=== PATIENT | male | born 1940 | race Caucasian/White ===

== ENCOUNTER → 2017-03-21 | Outpatient (CLI) | payer OTHER | LOC: FIMAGING 10:56 | PROVIDERS: ATTEND Physician Assistant | DX: Z13.820 Encounter for screening for osteoporosis (principal); Z91.81 History of falling ==

== ENCOUNTER 2018-03-11 17:44 | Emergency (ER) | payer OTHER ==
--- NOTE | 2018-03-11 18:08 | EDPHY ---
General Time Seen by Provider: 03/11/18 18:01 Narrative: CHIEF COMPLAINT: smashed finger HISTORY OF PRESENT ILLNESS: Patient presents with complaints of smashed finger. He says he was working on his van around noon today when he accidentally smashed his left ring finger between 2 pieces of metal. He has moderate pain at the distal part of the left ring finger. He has no pain anywhere else on the hand, wrist or arm. No numbness or tingling. There is some bleeding from the site. No weakness. No injury anywhere else on his person. Pain is worse with palpation and movement. Improved at rest. Does not radiate. No other associated complaints or modifying factors. Right-hand dominant. TIME OF INJURY: 12:00 p.m. Today TETANUS STATUS: Questionable MEDICAL/SURGICAL/SOCIAL HISTORY: Parkinson's. Right-hand dominant. Lives here independently with his spouse. Nonsmoker. REVIEW OF SYSTEMS: Ten systems reviewed and are negative unless otherwise noted in the HPI EXAMINATION General Appearance: Alert, no distress Head: normocephalic, atraumatic Cardiovascular: Symmetric radial pulses 2+. Brisk cap refill in the fingers left hand with left ring finger subungual hematoma. Neurological: A&O, sensory symmetric, interossei strength symmetric. Skin: Warm and dry, no rash. Small puncture on the pad of the left ring finger distal phalanx. No pulsatile bleeding. Extremities: Swelling and tenderness of the left ring finger distally. Range of motion is intact including superficialis and profundus flexors. Normal extension. No evidence of tenosynovitis, septic joint or infection. DIFFERENTIAL DIAGNOSES: Including but not limited to tuft fracture, crush injury, hematoma, subungual hematoma MDM: 6:30 p.m. Crush injury to left ring finger with likely tuft fracture and there is a subungual hematoma that will need to be drained. I have administered a digital block. I will proceed with x-ray, irrigation re-evaluation 6:50 p.m. Close crush injury to the left ring finger without fracture. There was a puncture that was repaired as well as a subungual hematoma drained. This was done without difficulty. He will be placed in a tube gauze dressing for 24-48 hours. We discussed daily wound care, follow up with primary care physician and ED precautions. We discussed suture removal here in 7 days. We discussed ice and elevation. We discussed OTC NSAIDS if allowed by primary care physician and if tolerated. He verbalized understanding of this and is discharged home stable condition. PROCEDURE: Digital Block Indication: Left ring finger crush injury with subungual hematoma Consent: Verbal Location: Left ring finger Anesthesia: Lidocaine 1% plain, 0.25% Marcaine plain, 5mL Description: Base of the finger was prepped. The above was infused without difficulty. Tolerated well. Good anesthesia. Complications: None PROCEDURE: Laceration repair Consent: Verbal Location: Left ring finger, distal phalanx pad Length of repair: 1 cm Complexity: Simple Layer involvement: Single Anesthesia: Digital block Irrigation: Extensive Debridement: None Procedure description: Following good anesthesia, the wound was copiously irrigated. Wound bed was explored with a sterile glove, and there is no foreign body noted. No tendon injury. Wound borders were approximated well with good hemostasis. Tolerated well without complication. Suture/Staple material: 5-0 Prolene, 1 simple interrupted suture Wound care: Routine as discussed Suture/Staple removal: 7 Days PROCEDURE: Subungual hematoma drainage Consent: Verbal Location: Left ring finger Anesthesia: Digital block Procedure description: After time-out and verbal consent, the left finger was prepped in common sterile fashion. 18 gauge needle was used to trephination the left ring fingernail. There was expression of 2-3 mL of venous blood. Brisk cap refill postprocedure. Tolerated well. Expressed: 2-3 mL sanguinous SUPERVISION: This patient was independently evaluated without direct involvement of or examination by the attending physician. ED Precautions: Worsening pain. Erythema, edema, cyanosis, pallor, paresthesia or anesthesia. - Diagnostics Imaging Results: Imaging Impressions Finger X-Ray 03/11/18 18:08 Impression: 1. No acute osseous abnormality seen left fourth digit. 2. Soft tissue swelling noted. - History Smoking Status: Never smoked - Objective Vital Signs: Initial Vital Signs Temperature (C) 97.9 F 03/11/18 17:51 Heart Rate 73 03/11/18 17:51 Respiratory Rate 18 03/11/18 17:51 Blood Pressure 174/92 H 03/11/18 17:51 O2 Sat (%) 94 03/11/18 17:51 O2 Delivery Mode Room Air Allergies/Adverse Reactions: metals Allergy (Unknown, Uncoded 03/11/18 17:46) Home Medications: Medication Instructions Recorded rOPINIRole HCL [Requip 1mg (*)] 3 mg PO TID 04/05/13 Acyclovir [Zovirax 400 mg (*)] 400 mg PO BID 04/06/13 Latanoprost 0.005% [Xalatan 0.005% 1 drops EACHEYE HS 04/06/13 (*)] Pravastatin Sodium 40 mg PO HS 12/07/15 Acetaminophen [Tylenol 325mg (*)] 650 mg PO Q4 PRN #0 tab 12/08/15 Acyclovir [Zovirax 400 mg (*)] 400 mg PO BID #0 tab 12/08/15 Docusate Sodium [Colace 100 MG (*)] 100 mg PO BID #0 cap 12/08/15 Latanoprost 0.005% [Xalatan 0.005% 1 drops EACHEYE HS #0 opht.btl 12/08/15 (*)] Pravastatin Sodium [Pravachol] 40 mg PO HS #0 tab 12/08/15 rOPINIRole HCL [Requip 2mg (*)] 3 mg PO TID #0 tab 12/08/15 Vesicare 03/11/18 Medications Given: Discontinued Medications Diphtheria/Tetanus/Acell Pertussis (Boostrix) 0.5 ml IM .ONCE ONE Stop: 03/11/18 18:10 Last Admin: 03/11/18 18:20 Dose: 0.5 ml Departure - Departure Disposition: Home, Routine, Self-Care Clinical Impression: Crushing injury of finger of left hand Hematoma, subungual, finger, left Qualifiers: Encounter type: initial encounter Qualified Code(s): S60.10XA - Contusion of unspecified finger with damage to nail, initial encounter Finger laceration Qualifiers: Encounter type: initial encounter Finger: ring finger Damage to nail status: without damage Foreign body presence: without foreign body Laterality: left Qualified Code(s): S61.215A - Laceration without foreign body of left ring finger without damage to nail, initial encounter Condition: Good Instructions: Subungual Hematoma (ED), Crush Injury (ED) Additional Instructions: 1. You may leave the dressing in place for up to 48 hr. 2. Wash the area of laceration once daily and apply a dressing or bandage once dry. Do this once daily 3. Contact your primary care physician tomorrow to notify them of this visit 3. Return here in 7 days for suture removal Referrals: Chente Sousa MD [Primary Care Provider] - As per Instructions Nadja Rodriguez MD [Medical Doctor] - As per Instructions Physician,Emergency DeptMD [Medical Doctor] - As per Instructions (Seven days for suture removal)
[2018-03-11] MEDS ORDERED: TDAP ADULT 0.5 ML INJ (BOOSTRIX) IM ONE (18:09)
[2018-03-11 19:15] VITALS: BP 143/94
== END 2018-03-11 19:10 | disposition home or self-care (01) ==
DX: S61.315A Laceration without foreign body of left ring finger with damage to nail, initial encounter (principal); Z23 Encounter for immunization; W23.1XXA Caught, crushed, jammed, or pinched between stationary objects, initial encounter; Y99.8 Other external cause status; Y93.89 Activity, other specified

== ENCOUNTER 2019-02-11 09:04 | Observation (INO) | payer OTHER ==
[2019-02-11] MEDS ORDERED: ceFAZolin 2 GM/DEXTROSE 100 ML IV ONE (09:40)
[2019-02-11] MEDS ORDERED: OPIUM/BELLADONNA ALKALO SUPP PR PRN ×2 (09:40→12:21)
[2019-02-11] MEDS ORDERED: LR 1,000 ML IV ONE (09:40)
[2019-02-11] MEDS ORDERED: LIDOCAINE 2% JELLY 20 ML (UROJECT) ONE (10:14)
[2019-02-11] MEDS ORDERED: OPIUM/BELLADONNA ALKALO SUPP PR ONE (10:15)
--- NOTE | 2019-02-11 10:23 | PDANEPAE ---
ANE Past Medical History - Cardiovascular History Hx Hypertension: No Hx Arrhythmias: No Hx Chest Pain: No Hx Coronary Artery / Peripheral Vascular Disease: No Hx CHF / Valvular Disease: No Hx Palpitations: No - Pulmonary History Hx COPD: No Hx Asthma/Reactive Airway Disease: No Hx Recent Upper Respiratory Infection: No Hx Oxygen in Use at Home: No Hx Sleep Apnea: No Sleep Apnea Screening Result - Last Documented: Negative Pulmonary History Comment: MONY USES C-PAP - Neurologic History Hx Cerebrovascular Accident: No Hx Seizures: No Hx Dementia: No Neurologic History Comment: PARKINSON DX 1993. NO TREMOR SINCE DEEP BRAIN STIMULATOR PLACED - Endocrine History Hx Diabetes: No - Renal History Hx Renal Disorders: Yes Renal History Comment: BPH - Liver History Hx Hepatic Disorders: No - Neurological & Psychiatric Hx Hx Neurological and Psychiatric Disorders: No - Cancer History Hx Cancer: Yes Cancer History Comment: SKIN - Congenital Disorder History Hx Congenital Disorders: No - GI History Hx Gastrointestinal Disorders: No - Other Health History Other Health History: LT LEG SCIATICA. GLAUCOMA. MISSING TEETH - Chronic Pain History Chronic Pain: No - Surgical History Prior Surgeries: LOKI CATARACT/GLAUCOMA. DEEP BRAIN STIMULATOR 2006. Vocal cord surgery (injection?) ANE Review of Systems Review of Systems: - Exercise capacity METS (RN): 4 METS ANE Patient History - Allergies Allergies/Adverse Reactions: metals Allergy (Unknown, Uncoded 02/11/19 09:49) Rash - Home Medications Home medications: home medication list seen and reviewed Home Medications: RX: rOPINIRole HCL [Requip 1mg (*)] 3 mg PO TID 04/05/13 [Last Taken 02/10/19 20 :00] RX: Acyclovir [Zovirax 400 mg (*)] 400 mg PO BID 04/06/13 [Last Taken 02/11/19 06:30] RX: Latanoprost 0.005% [Xalatan 0.005% (*)] 1 drops EACHEYE HS 04/06/13 [Last Taken 02/10/19] RX: Pravastatin Sodium 40 mg PO HS 12/07/15 [Last Taken 02/10/19 20:00] Amantadine BID 02/02/19 [Last Taken 02/11/19 06:30] Myrbetriq HS 02/02/19 [Last Taken 02/10/19 20:00] Niacin 500 mg (*) BID 02/02/19 [Last Taken 02/11/19 06:30] Viagra PRN 02/02/19 [Last Taken 2 Weeks Ago ~01/28/19] RX: Cefadroxil 02/11/19 [Last Taken 02/11/19 06:30] - NPO status NPO Status: no food or drink >8 hours NPO Since - Liquids (Date): 02/11/19 NPO Since - Liquids (Time): 06:00 NPO Since - Solids (Date): 02/10/19 NPO Since - Solids (Time): 20:00 - Anes Hx Anes Hx: no prior problems - Smoking Hx Smoking Status: Never smoked ANE Labs/Vital Signs - Vital Signs Blood Pressure: 143/80 Heart Rate: 81 Respiratory Rate: 16 O2 Sat (%): 96 Height: 172.72 cm Weight: 77.111 kg ANE Physical Exam - Airway Neck exam: decreased ROM Mallampati Score: Class 3 Mouth exam: poor dentition - Pulmonary Pulmonary: clear to auscultation - Cardiovascular Cardiovascular: regular rate and rhythym - ASA Status ASA Status: III ANE Anesthesia Plan Anesthesia Plan: GA w LMA
[2019-02-11] MEDS ORDERED: PROPOFOL 200 MG/20 ML VIAL ONE (10:24)
[2019-02-11] MEDS ORDERED: PROPOFOL/EMULSION 500 MG/50 ML BOTTLE IV ONE (10:24)
[2019-02-11] MEDS ORDERED: fentaNYL 100 MCG/2 ML INJ ONE ×2 (10:25→11:28)
--- NOTE | 2019-02-11 10:40 | PDHPUP ---
History & Physical Update H&P update statement: This history and physical update is based on an assessment of the patient which was completed after admission or registration (within 24 hours), but prior to the surgery/procedure. H&P update: H&P reviewed & patient examined, no change in patient's condition since H&P completed
[2019-02-11] MEDS ORDERED: PHENYLEPHRINE HCL 100 MCG/ML SYR ONE (11:10)
[2019-02-11] MEDS ORDERED: NALOXONE HCL 0.4 MG/ML INJ IVP PRN (11:36)
[2019-02-11] MEDS ORDERED: LR 500 ML IV PRN (11:36)
[2019-02-11] MEDS ORDERED: LABETALOL HCL 5 MG/ML 20 ML MDV IVP PRN (11:36)
[2019-02-11] MEDS ORDERED: HYDROmorphONE/DILAUDID 1 MG/ML INJ IVP PRN ×2 (11:36→12:21)
[2019-02-11] MEDS ORDERED: ONDANSETRON 4 MG/2 ML VIAL IVP PRN ×2 (11:36→12:21)
[2019-02-11] MEDS ORDERED: DEXAMETHASONE 4 MG/ML VIAL IVP PRN (11:36)
[2019-02-11] MEDS ORDERED: fentaNYL 100 MCG/2 ML INJ IVP PRN (11:36)
[2019-02-11] MEDS ORDERED: ACETAMINOPHEN 500 MG TAB PO PRN (11:36)
[2019-02-11] MEDS ORDERED: WATER FOR INJ.,BACTERIOSTATIC 30 ML MDV ONE (11:52)
--- NOTE | 2019-02-11 12:09 | POSTOPPROG ---
Post Op Note Date of Operation: 02/11/19 Surgeon: Alysia Jacobsen Anesthesia: LMA Pre-op Diagnosis: BPH w LUTs, parkinson's disease Post-op Diagnosis: same Indication: large obstructing median prostate lobe Procedure: cysto, mini TURP w resection of median lobe and posterior tissue Findings: large median lobe blocking outlet, trabeculated bladder Inf/Abcess present in the surg proc area at time of surgery?: No EBL: 50-100 Complications: none, patient tolerated procedure well Drains: Other (agosto)
[2019-02-11] MEDS ORDERED: HYDROCODONE/APAP 5/325 TAB PO PRN (12:21)
[2019-02-11] MEDS ORDERED: LABETALOL HCL 5 MG/ML 20 ML MDV ONE (12:28)
[2019-02-11] MEDS ORDERED: D5W LR 1,000 ML IV SCH (12:30)
--- NOTE | 2019-02-11 12:53 | GOP ---
[f rep st] OPERATIVE REPORT DATE OF OPERATION: 02/11/2019 SURGEON: Alysia Jacobsen MD ANESTHESIOLOGIST: Dr. Virgie John PREOPERATIVE DIAGNOSIS: Benign prostatic hypertrophy with lower urinary tract symptoms and Parkinson's disease. POSTOPERATIVE DIAGNOSIS: Benign prostatic hypertrophy with lower urinary tract symptoms and Parkinson's disease. PROCEDURE PERFORMED: Cystoscopy, transurethral resection of prostate with resection of median lobe and posterior tissue. FINDINGS: There is a very large obstructing prominent median lobe blocking the outlet and a trabeculated bladder. He was wide open when sitting at the veru after just removal of that median lobe and posterior tissue. ESTIMATED BLOOD LOSS: 50 mL. INDICATIONS: The patient is a patient of mine with Parkinson's disease with bothersome urinary frequency and urgency and retention. I did a cystoscopy in clinic and he had a large median lobe with very small bladder stones, and I felt that removal of this median lobe was pertinent despite his neurogenic overactive bladder issues as his emptying issues and his overactive bladder issues could be exacerbated by this large median lobe, so I discussed removal of the median lobe. I did discuss that there is increased risk of incontinence in patients that receive a TURP with Parkinson's disease. However, I did state that I would do a limited TURP and not do an entire resection of all the lobes as I would do standard in a patient without Parkinson's. However, I did tell him that much of the research that showed incontinence in patients with Parkinson's is secondary to them actually not being Parkinson's patients but instead multi-systems atrophy, and with his large median lobe, I did still feel that this would be of benefit for him, so I did discuss this in detail in clinic. He understood this. I also discussed that there is the standard risks of bleeding, infection, pain, injury to the urethra, the bladder, the ureteral orifices, need for subsequent procedures, small risk of bladder neck contracture , small risk of urethral stricture; and there is a 50% risk of retrograde ejaculation. He understood this and agreed to proceed. DESCRIPTION OF PROCEDURE: The patient was taken back to the cystoscopy suite, placed on the cystoscopy table in supine position. General anesthesia was induced without complication. Time-out was performed. Core measures satisfied , including placement of a Hayley Hugger, SCDs and administration of Ancef antibiotics. He was brought to the end of the table, placed in the dorsal lithotomy position, all pressure points padded. Genitalia draped and prepped in the standard surgical fashion with Betadine. Rigid visual obturator easily cannulated the urethral meatus and was advanced atraumatically into the bladder. Jackson cystoscopy was performed confirming small bladder stones and very trabeculated bladder. There was also a very large median lobe that was obstructing the channel. I was able to identify the right and left ureteral orifices, and I started resection of the posterior tissue at the 5 and the 7 o' clock position back toward the veru but at no time violated the veru. I then resected the intervening large median lobe and this median lobe actually grew also into the bladder along the bladder mucosa posteriorly, and I did remove all of this tissue. I did not undermine the bladder neck. Once I removed all this posterior tissue back to the veru, I was able to see clearly and directly into the bladder. There was a small amount of lateral tissue that was blocking at the veru, so I did remove this but there was just a very shallow removal at the right lateral lobe. Otherwise, he was again wide-open when sitting at the veru and I felt that this was sufficient to help relieve him of his obstructive symptoms. I looked in the bladder. I removed bladder chips and then also used the playnik evacuator to remove all of the chips at the end of the procedure. All the chips were removed. I used electrocautery liberally to maintain hemostasis throughout. At the end of the procedure, I was very happy as I felt I did not remove too much tissue, that he would maintain his continence but yet be relieved of this median lobe obstruction. The scope was then removed. Urine was clear. Lidocaine was placed per urethra. A Forman catheter, 24-Moroccan, was inserted with return of clear urine, and CBI was initiated. Belladonna and opium placed per rectum. At this point, the procedure was considered complete. He was awoken from anesthesia and transferred to the PACU in good condition. COMPLICATIONS: None. The patient tolerated the procedure well. DRAINS: Forman catheter. /[id number]/MODL MTDD
--- NOTE | 2019-02-11 13:54 | POSTANESTH ---
Post Anesthetic Evaluation Cardiovascular Status: Normal, Stable Respiratory Status: Normal, Stable Level of Consciousness/Mental Status: Can Participate in Eval Pain Control: Adequate, Prn Tx Ordered Nausea/Vomiting Control: Adequate, Prn Tx Ordered Complications Possibly Related to Anesthesia: None Noted
[2019-02-11] MEDS: ceFAZolin 2 GM/DEXTROSE 100 ML IV SCH (19:36)
[2019-02-11] MEDS: SENNOSIDES/DOCUSATE SODIUM TAB PO SCH (20:13)
[2019-02-12] MEDS: ceFAZolin 2 GM/DEXTROSE 100 ML IV SCH ×2 (01:46→09:27)
[2019-02-12] MEDS ORDERED: ACYCLOVIR 400 MG TAB PO SCH (09:00)
[2019-02-12] MEDS ORDERED: AMANTADINE HCL 100 MG CAP PO SCH (09:00)
[2019-02-12] MEDS ORDERED: NIACIN 500 MG TAB PO SCH (09:00)
--- NOTE | 2019-02-12 09:15 | ASMTCMCOM ---
CM Note CM Note Notes: CM met with Georges & for discharge planning. Pt is a 78yr old who was admitted with BPH, urinary retention, who on 02/11 had a TURP for a large median lobe blocking outlet, trabeculaed bladder. Pt has a history of Parkinson and wears a C-pap at night (manages C-pap at home. CM available for needs. PLAN: Likely discharge home with and follow up with appointments to see urology. Date Signed: 02/12/2019 09:15 AM Electronically Signed By:Sabina Butt.RN,TIRE ROOM SUPERVISOR
[2019-02-12] MEDS: SENNOSIDES/DOCUSATE SODIUM TAB PO SCH (09:28)
[2019-02-12 11:29] VITALS: BP 145/65
--- NOTE | 2019-02-12 11:50 | SOAPPROG ---
SOAP Progress Note Assessment/Plan: Assessment: Postop TURP Doing well Plan: Voiding trial. Call w PVR amounts. Home today w or wo agosto depepnding on PVR amounts. 02/12/19 11:48 Subjective: Doing well, CBI disconnected, urine clear. Ambulating and urine looks good. Krissy diet. No pain. Objective: Vital Signs Temp Pulse Resp BP Pulse Ox 36.8 C 72 14 145/65 H 94 02/12/19 11:26 02/12/19 11:26 02/12/19 11:26 02/12/19 11:26 02/12/19 11:26 02/11/19 02/12/19 02/13/19 05:59 05:59 05:59 Intake Total 2040 Output Total 1760 850 Balance 280 -850 Gen NAD A&O CV regular Lungs Normal effort Abd soft Ext warm agosto w clear urine. - Pending Discharge Pending Discharge Within 24 Hours: Yes Pending Discharge Date: 02/13/19 Pending Discharge Time: 11:00 ICD10 Worksheet Patient Problems: Problems Problem Status Onset BPH (benign prostatic hyperplasia) Acute Partial small bowel obstruction Acute
--- NOTE | 2019-02-12 12:39 | ASMTLACE ---
AYDENE Length of stay for Answers: 1 day current admission # of Emergency department Answers: 0 visits in the last 6 months Score: 1 Date Signed: 02/12/2019 12:38 PM Electronically Signed By:Sbaina Butt.RN,ARMORING MACHINE OPERATOR
[2019-02-12] MEDS ORDERED: LATANOPROST 0.005% 2.5 ML OPHT DROPS EACHEYE SCH (21:00)
--- NOTE | 2019-02-18 05:07 | GDS ---
[f rep st] DISCHARGE SUMMARY DIAGNOSES: 1. Benign prostatic hyperplasia with lower urinary tract symptoms. 2. Parkinson disease. 3. Neurogenic detrusor overactivity. PROCEDURES: A transurethral resection of prostate in saline. HOSPITAL COURSE: The patient underwent the above-mentioned procedure without complications. He was admitted overnight on continuous bladder irrigation. The irrigation was able to be weaned off by brittney maddox and his urine was clear. The Forman catheter was removed. He passed his voiding trial and he wa s discharged without a Forman catheter. I recommended him to not take Myrbetriq for a few days to see how his symptoms are. He was ambulating, tolerating a general diet, and did well during the entire hospital stay. MEDICATIONS AT DISCHARGE: Please see the medical record. FOLLOWUP: He will follow up in my office in 2-3 weeks for a bladder scan. /[id number]/MODL
== END 2019-02-12 14:54 | disposition home or self-care (01) ==
LOC: FSGY 09:04 → F3E 12:21 → F1N 13:55
PROVIDERS: ADMIT Urology; ATTEND Urology
PROC: 0VB08ZX Excision of Prostate, Via Natural or Artificial Opening Endoscopic, Diagnostic (ICD-10-PCS; principal; 2019-02-11 10:30)
DX: N40.1 Benign prostatic hyperplasia with lower urinary tract symptoms (principal); N31.9 Neuromuscular dysfunction of bladder, unspecified; R35.0 Frequency of micturition; G20 Parkinson's disease; G47.33 Obstructive sleep apnea (adult) (pediatric)
CPT/HCPCS: 52601; 88304; 88305; J0690; J2370; J2704; J3010